=== PATIENT | male | born 1980 | race Caucasian/White ===

== ENCOUNTER 2017-03-22 09:02 | Emergency (ER) | payer MEDICAID ==
[2017-03-22 09:09] VITALS: BP 125/92; PULSE 67; RESP 17; TEMP 97.5; O2SAT 96
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
== END 2017-03-22 09:45 | disposition home or self-care (01) ==
DX: S82.851A Displaced trimalleolar fracture of right lower leg, initial encounter for closed fracture (principal); F17.200 Nicotine dependence, unspecified, uncomplicated; V18.0XXA Pedal cycle driver injured in noncollision transport accident in nontraffic accident, initial encounter; Y93.55 Activity, bike riding

== ENCOUNTER 2017-03-23 10:33 | Emergency (ER) | payer MEDICAID ==
[2017-03-23 10:43] VITALS: TEMP 98.1
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
[2017-03-23] MEDS ORDERED: OXYCODONE/APAP 5/325 TAB PO ONE (13:34)
[2017-03-23 13:50] VITALS: BP 130/90; PULSE 91; RESP 16; O2SAT 96
== END 2017-03-23 13:49 | disposition home or self-care (01) ==
DX: S82.851A Displaced trimalleolar fracture of right lower leg, initial encounter for closed fracture (principal); F17.200 Nicotine dependence, unspecified, uncomplicated; V18.0XXA Pedal cycle driver injured in noncollision transport accident in nontraffic accident, initial encounter; Y93.55 Activity, bike riding